=== PATIENT | female | born 1950 | race Caucasian/White ===

== ENCOUNTER 2022-05-26 11:08 | Inpatient (IN) ==
[2022-05-26] MEDS ORDERED: 0.9 % Sodium Chloride 1,000 ML IV ONE (12:21)
[2022-05-26] MEDS ORDERED: Morphine Sulfate 2 MG/ML SYRINGE IVP ONE (12:21)
[2022-05-26 12:33] LABS: Basophils # 0.1 K/mcL (0.0-0.2); Basophils % 0.4 %; Eosinophils % 0.1 %; Hematocrit 38.3 % (35.3-44.9); Hemoglobin 12.3 g/dL (11.5-15.4); Immature Granulocytes % 0.4 % (0-4); Lymphocytes # 0.8 K/mcL (0.6-4.6); Lymphocytes % 5.9 %; Mean Corpuscular HGB Conc 32.1 g/dL (31.6-35.5); Mean Corpuscular Hemoglobin 27.6 pg (28.0-33.3); Mean Corpuscular Volume 85.9 fL (83.0-100.0); Mean Platelet Volume 10.4 fL (9.4-12.4); Monocytes # 1.2 K/mcL (0.0-1.3); Monocytes % 9.3 %; Platelet Count 258 K/mcL (140-400); Red Blood Count 4.46 M/mcL (3.82-4.97); Red Cell Distribution Width 14.6 % (11.5-14.5); Segmented Neutrophils % 83.9 %; White Blood Count 13.2 K/mcL (4.3-11.1)
[2022-05-26 12:41] LABS: Prothrombin Time 11.2 Seconds (9.4-12.1)
[2022-05-26 13:04] LABS: Albumin 4.1 g/dL (3.5-5.7); Albumin/Globulin Ratio 1.4 (1.1-2.2); Bilirubin,Total 0.7 mg/dL (0.3-1.0); Calcium 9.2 mg/dL (8.6-10.3); Globulin 2.9 g/dL (2.4-3.5); Potassium 3.9 mEq/L (3.5-5.1)
[2022-05-26 13:12] LABS: Magnesium 2.2 mg/dL (1.6-2.6); Troponin I < 0.03 ng/mL (< 0.04)
[2022-05-26] MEDS ORDERED: Ondansetron 4 MG/2 ML VIAL IVP PRN (14:45)
[2022-05-26] MEDS ORDERED: Melatonin 3 MG TABLET PO PRN (14:45)
[2022-05-26] MEDS ORDERED: Naloxone 0.4 MG/ML INJ IVP PRN (14:45)
[2022-05-26 14:52] LABS: Bilirubin,Urine Negative (Negative); Blood,Urine Small (Negative); Clarity,Urine Clear (Clear); Color,Urine Yellow (Yellow); Glucose,Urine (UA) Normal (Normal); Ketones,Urine 20 mg/dL (Negative); Leukocyte Esterase,Urine Negative (Negative); Mucus,Urine Many per lpf (None-Few); Nitrite,Urine Negative (Negative); PH,Urine 5.5 pH Units (5.0-8.0); Protein,Urine 50 mg/dL (Neg-Trace); Specific Gravity,Urine 1.029 (1.010-1.025); Squamous Epithelial Cell,Urine Few per hpf (None-Few); Urobilinogen,Urine Normal (Normal); WBC,Urine 0-3 per hpf (0-3)
[2022-05-26] MEDS ORDERED: *HR* OxyCODONE Immed Rel 5 MG TABLET PO PRN ×2 (15:24)
[2022-05-26] MEDS: Acetaminophen 325 MG TABLET PO PRN ×2 (16:47→21:24)
[2022-05-27] MEDS ORDERED: 0.9 % Sodium Chloride 1,000 ML IVC SCH ×2 (00:01→04:30)
[2022-05-27] MEDS ORDERED: 0.9 % Sodium Chloride 1,000 ML IV ONE (04:30)
[2022-05-27] MEDS ORDERED: lisinopriL 20 MG TABLET PO SCH (09:00)
[2022-05-27] MEDS ORDERED: Cholecalciferol (D-3) 1,000 UNIT (25MCG) TABLET PO SCH (09:00)
[2022-05-27] MEDS ORDERED: amLODIPine 5 MG TABLET PO SCH (09:00)
[2022-05-27] MEDS ORDERED: Carbidopa/Levodopa 25/100 TABLET PO SCH (09:00)
[2022-05-27] MEDS ORDERED: TOTAL JOINT MIXTURE (100ML) INTRAART ONE (12:45)
[2022-05-27] MEDS ORDERED: Ondansetron 4 MG/2 ML VIAL ONE (14:05)
[2022-05-27] MEDS ORDERED: *HR* Succinylcholine 200 MG/10 ML VIAL IVP ONE (14:05)
[2022-05-27] MEDS ORDERED: *HR* Rocuronium Bromide 50 MG/5 ML VIAL ONE (14:05)
[2022-05-27] MEDS ORDERED: *HR* Propofol 200 MG/20 ML VIAL IVP ONE (14:05)
[2022-05-27] MEDS ORDERED: Lidocaine -MPF 2% 2 ML VIAL ONE (14:05)
[2022-05-27] MEDS ORDERED: *HR* FentaNYL (PF) 100 MCG/2 ML VIAL ONE ×2 (14:05→16:23)
[2022-05-27] MEDS ORDERED: Lidocaine HCL 4 ML Topical Solution (Laryng-O-Jet Kit Sterile Pak) TP ONE (14:05)
[2022-05-27] MEDS ORDERED: Vancomycin 1,000 MG VIAL ONE (14:30)
[2022-05-27] MEDS ORDERED: Tranexamic Acid 1,000 MG/10 ML VIAL ONE (15:24)
[2022-05-27] MEDS ORDERED: ACETAMINOPHEN IVPB ONE (15:43)
[2022-05-27] MEDS ORDERED: Acetaminophen IV 1,000 MG/100 ML BAG IVPB ONE (15:46)
[2022-05-27] MEDS ORDERED: Sugammadex Sodium 200 MG/2 ML VIAL IV ONE (16:12)
[2022-05-27] MEDS ORDERED: MOM Conc 10 ML UD.LIQ PO PRN (16:58)
[2022-05-27] MEDS ORDERED: Naloxone 0.4 MG/ML INJ IVP PRN ×2 (16:58)
[2022-05-27] MEDS ORDERED: Ondansetron 4 MG/2 ML VIAL IVP PRN (16:58)
[2022-05-27] MEDS ORDERED: *HR* Promethazine 25 MG/ML VIAL IM PRN (16:58)
[2022-05-27] MEDS ORDERED: *HR* OxyCODONE Immed Rel 5 MG TABLET PO PRN (16:58)
[2022-05-27] MEDS ORDERED: Ringers Solution, Lactated 1,000 ML IVC SCH (16:58)
[2022-05-27] MEDS ORDERED: Sennosides 8.6 MG TABLET PO PRN (16:58)
[2022-05-27] MEDS: Ascorbic Acid 500 MG TABLET PO SCH (19:04)
[2022-05-27] MEDS: lisinopriL 20 MG TABLET PO SCH (20:19)
[2022-05-27] MEDS: Sennosides 8.6 MG TABLET PO SCH (20:19)
[2022-05-27] MEDS: Carbidopa/Levodopa 25/100 TABLET PO SCH (20:19)
[2022-05-27] MEDS ORDERED: Sennosides 8.6 MG TABLET PO SCH (21:00)
[2022-05-27] MEDS: CeFAZolin 2 GM/120 ML BAG IVPB SCH (23:29)
[2022-05-28 05:06] LABS: Basophils % 0.1 %; Hematocrit 33.1 % (35.3-44.9); Immature Granulocytes % 0.5 % (0-4); Lymphocytes # 0.5 K/mcL (0.6-4.6); Lymphocytes % 3.8 %; Mean Corpuscular Hemoglobin 27.2 pg (28.0-33.3); Mean Corpuscular Volume 84.9 fL (83.0-100.0); Mean Platelet Volume 11.1 fL (9.4-12.4); Monocytes # 1.2 K/mcL (0.0-1.3); Monocytes % 8.5 %; Neutrophils # 12.1 K/mcL (1.6-8.9); Platelet Count 247 K/mcL (140-400); Red Cell Distribution Width 14.2 % (11.5-14.5); Segmented Neutrophils % 87.1 %; White Blood Count 13.9 K/mcL (4.3-11.1)
[2022-05-28 05:16] LABS: BUN/Creatinine Ratio 27 (6-26); Blood Urea Nitrogen 18 mg/dL (8-23); Calcium 8.7 mg/dL (8.6-10.3); Carbon Dioxide 24 mEq/L (23-29); Chloride 105 mEq/L (98-107); Glucose 121 mg/dL (70-105); Osmolality,Calculated 287 (280-300); Potassium 4.2 mEq/L (3.5-5.1); Sodium 137 mEq/L (136-145)
[2022-05-28 05:23] LABS: Hemoglobin 10.6 g/dL (11.5-15.4)
[2022-05-28] MEDS: CeFAZolin 2 GM/120 ML BAG IVPB SCH (11:41)
[2022-05-28] MEDS: Ascorbic Acid 500 MG TABLET PO SCH ×2 (11:41→15:48)
[2022-05-28] MEDS: Carbidopa/Levodopa 25/100 TABLET PO SCH ×2 (11:42→22:32)
[2022-05-28] MEDS: Multivit/Ca/Min/Fe/FA 1 TAB TABLET PO SCH (11:42)
[2022-05-28] MEDS: Cholecalciferol (D-3) 1,000 UNIT (25MCG) TABLET PO SCH (11:42)
[2022-05-28] MEDS: amLODIPine 5 MG TABLET PO SCH (11:42)
[2022-05-28] MEDS: lisinopriL 20 MG TABLET PO SCH ×2 (11:42→22:32)
[2022-05-28] MEDS: Aspirin Enteric Coated 81 MG Tablet PO SCH ×2 (18:40→22:35)
[2022-05-28] MEDS: Melatonin 3 MG TABLET PO PRN (22:33)
[2022-05-28] MEDS: Sennosides 8.6 MG TABLET PO SCH (22:36)
[2022-05-29 08:28] LABS: Basophils % 0.1 %; Hematocrit 28.4 % (35.3-44.9); Immature Granulocytes % 0.7 % (0-4); Lymphocytes # 0.8 K/mcL (0.6-4.6); Lymphocytes % 5.4 %; Mean Corpuscular HGB Conc 31.7 g/dL (31.6-35.5); Mean Corpuscular Hemoglobin 26.9 pg (28.0-33.3); Mean Platelet Volume 10.7 fL (9.4-12.4); Monocytes # 1.1 K/mcL (0.0-1.3); Neutrophils # 12.2 K/mcL (1.6-8.9); Platelet Count 320 K/mcL (140-400); Red Blood Count 3.34 M/mcL (3.82-4.97); Red Cell Distribution Width 14.5 % (11.5-14.5); Segmented Neutrophils % 85.8 %; White Blood Count 14.2 K/mcL (4.3-11.1)
[2022-05-29 08:47] LABS: Calcium 8.3 mg/dL (8.6-10.3); Potassium 3.7 mEq/L (3.5-5.1)
[2022-05-29] MEDS: Aspirin Enteric Coated 81 MG Tablet PO SCH ×2 (08:47→20:15)
[2022-05-29] MEDS: amLODIPine 5 MG TABLET PO SCH (08:48)
[2022-05-29] MEDS: lisinopriL 20 MG TABLET PO SCH ×2 (08:48→20:15)
[2022-05-29] MEDS: Ascorbic Acid 500 MG TABLET PO SCH ×3 (08:48→18:45)
[2022-05-29] MEDS: Multivit/Ca/Min/Fe/FA 1 TAB TABLET PO SCH (08:48)
[2022-05-29] MEDS: Cholecalciferol (D-3) 1,000 UNIT (25MCG) TABLET PO SCH (08:48)
[2022-05-29] MEDS: Carbidopa/Levodopa 25/100 TABLET PO SCH ×2 (08:49→20:15)
[2022-05-29] MEDS: Sennosides 8.6 MG TABLET PO SCH (20:15)
[2022-05-30 03:12] LABS: Basophils % 0.1 %; Eosinophils % 0.3 %; Hematocrit 26.1 % (35.3-44.9); Hemoglobin 8.3 g/dL (11.5-15.4); Immature Granulocytes % 0.4 % (0-4); Lymphocytes # 0.7 K/mcL (0.6-4.6); Lymphocytes % 5.9 %; Mean Corpuscular HGB Conc 31.8 g/dL (31.6-35.5); Mean Corpuscular Hemoglobin 27.3 pg (28.0-33.3); Mean Corpuscular Volume 85.9 fL (83.0-100.0); Monocytes % 8.7 %; Neutrophils # 9.6 K/mcL (1.6-8.9); Platelet Count 234 K/mcL (140-400); Red Blood Count 3.04 M/mcL (3.82-4.97); Red Cell Distribution Width 14.7 % (11.5-14.5); Segmented Neutrophils % 84.6 %; White Blood Count 11.3 K/mcL (4.3-11.1)
[2022-05-30 03:29] LABS: Calcium 8.1 mg/dL (8.6-10.3); Potassium 3.9 mEq/L (3.5-5.1)
[2022-05-30] MEDS: Carbidopa/Levodopa 25/100 TABLET PO SCH ×2 (09:51→21:15)
[2022-05-30] MEDS: lisinopriL 20 MG TABLET PO SCH ×2 (09:52→21:15)
[2022-05-30] MEDS: amLODIPine 5 MG TABLET PO SCH (09:55)
[2022-05-30] MEDS: Aspirin Enteric Coated 81 MG Tablet PO SCH ×2 (09:56→21:15)
[2022-05-30] MEDS: Cholecalciferol (D-3) 1,000 UNIT (25MCG) TABLET PO SCH (09:57)
[2022-05-30] MEDS: Multivit/Ca/Min/Fe/FA 1 TAB TABLET PO SCH (09:59)
[2022-05-30] MEDS: Ascorbic Acid 500 MG TABLET PO SCH ×2 (09:59→16:06)
[2022-05-30] MEDS: Sennosides 8.6 MG TABLET PO SCH (21:15)
[2022-05-31 03:54] LABS: Basophils % 0.1 %; Eosinophils # 0.1 K/mcL (0.0-0.6); Eosinophils % 0.7 %; Hematocrit 25.1 % (35.3-44.9); Hemoglobin 7.9 g/dL (11.5-15.4); Immature Granulocytes % 0.5 % (0-4); Lymphocytes % 8.6 %; Mean Corpuscular HGB Conc 31.5 g/dL (31.6-35.5); Mean Corpuscular Hemoglobin 27.1 pg (28.0-33.3); Mean Corpuscular Volume 86.3 fL (83.0-100.0); Mean Platelet Volume 10.5 fL (9.4-12.4); Monocytes # 0.9 K/mcL (0.0-1.3); Neutrophils # 9.3 K/mcL (1.6-8.9); Platelet Count 242 K/mcL (140-400); Red Blood Count 2.91 M/mcL (3.82-4.97); Segmented Neutrophils % 82.1 %; White Blood Count 11.3 K/mcL (4.3-11.1)
[2022-05-31] MEDS: Multivit/Ca/Min/Fe/FA 1 TAB TABLET PO SCH (09:32)
[2022-05-31] MEDS: Cholecalciferol (D-3) 1,000 UNIT (25MCG) TABLET PO SCH (09:32)
[2022-05-31] MEDS: Ascorbic Acid 500 MG TABLET PO SCH ×2 (09:32→16:57)
[2022-05-31] MEDS: Carbidopa/Levodopa 25/100 TABLET PO SCH ×2 (09:32→22:00)
[2022-05-31] MEDS: Aspirin Enteric Coated 81 MG Tablet PO SCH ×2 (09:33→22:00)
[2022-05-31] MEDS: amLODIPine 5 MG TABLET PO SCH (09:33)
[2022-05-31] MEDS: lisinopriL 20 MG TABLET PO SCH ×2 (09:34→21:59)
[2022-05-31] MEDS: Melatonin 3 MG TABLET PO PRN (21:59)
[2022-05-31] MEDS: Sennosides 8.6 MG TABLET PO SCH (21:59)
[2022-06-01 03:10] VITALS: TEMP 98.3
[2022-06-01] MEDS: Cholecalciferol (D-3) 1,000 UNIT (25MCG) TABLET PO SCH (09:36)
[2022-06-01] MEDS: lisinopriL 20 MG TABLET PO SCH (09:36)
[2022-06-01] MEDS: Carbidopa/Levodopa 25/100 TABLET PO SCH (09:36)
[2022-06-01] MEDS: amLODIPine 5 MG TABLET PO SCH (09:36)
[2022-06-01] MEDS: Aspirin Enteric Coated 81 MG Tablet PO SCH (09:36)
[2022-06-01] MEDS: Multivit/Ca/Min/Fe/FA 1 TAB TABLET PO SCH (09:36)
[2022-06-01 10:22] LABS: Influenza A PCR Negative (Negative); Influenza B PCR Negative (Negative); Resp. Syncytial Virus PCR Negative (Negative)
[2022-06-01 10:31] LABS: SARS-CoV-2 by PCR (In House) Negative (Negative)
[2022-06-01] MEDS: Ascorbic Acid 500 MG TABLET PO SCH (11:27)
[2022-06-01 11:41] VITALS: BP 126/55; PULSE 91; O2SAT 95
== END 2022-06-01 12:15 | DRG 956 ==
LOC: 4WAOSI 11:08 → EMEROOARM 11:08 → SUATTDRO 14:36 → 4WAOSI 15:44
PROVIDERS: ADMIT Hospitalist; ATTEND Hospitalist